=== PATIENT | male | born 1995 | race Caucasian/White ===

== ENCOUNTER 2017-11-30 07:45 | Emergency (ER) | payer BC ==
[~2017-11-30] VITALS: Ht 177.8 cm; Wt 88.4 kg
[2017-11-30 07:53] VITALS: BP 152/89
[2017-11-30] MEDS ORDERED: CefTRIAXone 250MG IM Kit w/LIDOcaine IM ONE (08:25)
[2017-11-30] MEDS ORDERED: ondansetron 4mg rapidly disintigrating tab PO ONE (08:25)
[2017-11-30] MEDS ORDERED: metroNIDAZOLE 500mg tablet PO ONE (08:25)
[2017-11-30] MEDS ORDERED: azithromycin 250mg tablet PO ONE (08:25)
[2017-11-30 08:35] LABS: CLARITY,URINE CLOUDY (Clear); COLOR,URINE YELLOW (Yellow); GLUCOSE, URINE NEGATIVE (Neg); KETONES,URINE NEGATIVE (Neg); LEUKOCYTE ESTERASE ,URINE SMALL (Neg); NITRITES, URINE NEGATIVE (Neg); OCCULT BLOOD,URINE TRACE-INTACT (Neg); PH,URINE 6.5 (4.8-8.0); PROTEIN,URINE TRACE mg/dl (Neg); UROBILINOGEN,URINE 0.2 E.U/dL (0.2-1.0)
[2017-11-30 08:50] LABS: UA COLLECTION TYPE CLN CATCH MIDSTREAM
[2017-11-30 08:51] LABS: BACTERIA,URINE FEW /HPF (Neg); MUCUS STRANDS NONE SEEN /LPF (Neg); RBC,URINE 0-2 /HPF (0-2); SQUAMOUS EPITHELIAL CELL,UR FEW /LPF (FEW); WBC CLUMPS,URINE MODERATE /HPF (NEGATIVE); WBC,URINE TNTC /HPF (0-4)
== END 2017-11-30 08:48 | disposition home or self-care (01) ==
LOC: ER 07:48
DX: N34.2 Other urethritis (principal); F17.200 Nicotine dependence, unspecified, uncomplicated; F12.90 Cannabis use, unspecified, uncomplicated
CPT/HCPCS: 36415; 81001; 87077; 87088; 87185; 87491; 87591; 96372; 99284; J0696; J3490

== ENCOUNTER 2018-01-22 08:03 | Emergency (ER) | payer BC ==
[~2018-01-22] VITALS: Ht 180.3 cm; Wt 84.1 kg
[2018-01-22 08:04] VITALS: BP 152/71
[2018-01-22] MEDS ORDERED: LIDO20SO16 PO (08:58)
[2018-01-22] MEDS ORDERED: METH4TAB3 PO (08:58)
== END 2018-01-22 09:03 | disposition home or self-care (01) ==
LOC: ER 08:03
DX: J06.9 Acute upper respiratory infection, unspecified (principal); J02.9 Acute pharyngitis, unspecified; J45.909 Unspecified asthma, uncomplicated; F17.200 Nicotine dependence, unspecified, uncomplicated; F12.90 Cannabis use, unspecified, uncomplicated
CPT/HCPCS: 87081; 87880; 99284

== ENCOUNTER 2018-10-19 18:28 | Emergency (ER) | payer BC, OTHER ==
[~2018-10-19] VITALS: Ht 180.3 cm; Wt 97.7 kg
[~2018-10-19 18:28] MED LIST: LIDO20SO16 PO; METH4TAB3 PO
[2018-10-19] MEDS ORDERED: LIDOcaine 1% w/epiNEPHrine 1:200,000 30ml vial IM ONE (20:20)
[2018-10-19] MEDS ORDERED: LIDOcaine 1% w/epiNEPHrine 1:200,000 30ml vial SQ ONE (20:20)
[2018-10-19 21:32] VITALS: BP 127/80
== END 2018-10-19 21:38 | disposition home or self-care (01) ==
LOC: ER 18:30
DX: S01.81XA Laceration without foreign body of other part of head, initial encounter (principal); S60.512A Abrasion of left hand, initial encounter; S60.511A Abrasion of right hand, initial encounter; J45.909 Unspecified asthma, uncomplicated; F12.90 Cannabis use, unspecified, uncomplicated; Z79.899 Other long term (current) drug therapy; Y04.0XXA Assault by unarmed brawl or fight, initial encounter; Y93.89 Activity, other specified; Y92.89 Other specified places as the place of occurrence of the external cause; Y99.8 Other external cause status
CPT/HCPCS: 12011; 73130; 99283; J3490

== ENCOUNTER 2019-08-29 06:42 | Emergency (ER) | payer BC ==
[~2019-08-29] VITALS: Ht 177.8 cm; Wt 100.0 kg
[2019-08-29 06:50] VITALS: BP 166/73
[2019-08-29] MEDS ORDERED: naproxen 500mg tablet PO ONE (07:00)
== END 2019-08-29 07:24 | disposition home or self-care (01) ==
LOC: ER 06:42
DX: M77.9 Enthesopathy, unspecified (principal); M25.522 Pain in left elbow; J45.909 Unspecified asthma, uncomplicated; F12.90 Cannabis use, unspecified, uncomplicated; Z72.89 Other problems related to lifestyle; Z79.899 Other long term (current) drug therapy
CPT/HCPCS: 99282

== ENCOUNTER 2019-10-28 17:48 | Emergency (ER) | payer BC ==
[~2019-10-28] VITALS: Ht 180.3 cm; Wt 90.9 kg
[2019-10-28 17:53] VITALS: BP 155/69
--- NOTE | 2019-10-28 18:04 | NUR ---
PT IS 24 YO MALE C/O SORE THROAT SINCE SUNDAY, NO COUGH, NO FEVER, NO DIFFICULTY SWALLOWING, RESP EVEN AND UNLABORED, WAITING TO BE EVALUATED
[2019-10-28] MEDS ORDERED: AMOX500C2 PO (19:08)
== END 2019-10-28 19:36 | disposition home or self-care (01) ==
LOC: ER 17:48
DX: J02.9 Acute pharyngitis, unspecified (principal); J45.909 Unspecified asthma, uncomplicated; F12.90 Cannabis use, unspecified, uncomplicated; Z79.2 Long term (current) use of antibiotics; Z79.899 Other long term (current) drug therapy
CPT/HCPCS: 87880; 99283

== ENCOUNTER 2019-11-10 15:38 | Emergency (ER) | payer BC ==
[~2019-11-10] VITALS: Ht 180.3 cm; Wt 95.5 kg
[2019-11-10 17:22] VITALS: BP 119/63
== END 2019-11-10 17:26 | disposition home or self-care (01) ==
LOC: ER 15:39
DX: J02.9 Acute pharyngitis, unspecified (principal); Z20.828 Contact with and (suspected) exposure to other viral communicable diseases; J45.909 Unspecified asthma, uncomplicated; F12.90 Cannabis use, unspecified, uncomplicated; Z79.899 Other long term (current) drug therapy
CPT/HCPCS: 36415; 87081; 87880; 99283

== ENCOUNTER 2020-01-22 13:10 | Emergency (ER) | payer BC ==
[~2020-01-22] VITALS: Ht 180.3 cm; Wt 86.4 kg
--- NOTE | 2020-01-22 14:18 | NUR ---
Patient ambulated to room from lobby with steady gait. Patient reports sore throat x 3 months. treated for strep with two antibiotics, still has pain. Patient test for COVID also and was negative.
[2020-01-22] MEDS ORDERED: dexamethasone sod phosphate 10mg/ml inj PO STA (14:33)
[2020-01-22 15:19] VITALS: BP 133/83
[2020-01-22 17:07] LABS: MONOTEST NEGATIVE (Neg)
== END 2020-01-22 15:15 | disposition home or self-care (01) ==
LOC: EEVIPCON 13:11 → ER 13:11
DX: J02.9 Acute pharyngitis, unspecified (principal); R53.1 Weakness; R53.83 Other fatigue; F17.200 Nicotine dependence, unspecified, uncomplicated; F12.90 Cannabis use, unspecified, uncomplicated; J45.909 Unspecified asthma, uncomplicated; Z72.89 Other problems related to lifestyle; Z79.899 Other long term (current) drug therapy
CPT/HCPCS: 36415; 86308; 87081; 87880; 99283; J1100

== ENCOUNTER 2020-06-12 20:35 | Emergency (ER) | payer BC ==
[~2020-06-12] VITALS: Ht 180.3 cm; Wt 91.9 kg
[2020-06-12 21:41] LABS: BASOPHILS % (AUTO) 0.6 % (0-1); EOSINOPHILS # (AUTO) 0.1 X10'3 (0-0.9); EOSINOPHILS % (AUTO) 1.6 % (0-6); HEMATOCRIT 47.4 % (42.0-52.0); HEMOGLOBIN 16.6 g/dl (14.0-17.9); LYMPHOCYTES # (AUTO) 2.1 X10'3 (1.1-4.8); LYMPHOCYTES % (AUTO) 29.3 % (21-51); MEAN CORPUSCULAR HGB CONC 35.1 g/dL (33.0-36.5); MEAN CORPUSCULAR VOLUME 91.3 FL (78-98); MEAN PLATELET VOLUME 8.1 FL (7.4-10.4); MONOCYTES # (AUTO) 0.5 X10'3 (0-0.9); MONOCYTES % (AUTO) 6.9 % (2-12); NEUTROPHILS # (AUTO) 4.4 X10'3 (1.8-7.7); NEUTROPHILS % (AUTO) 61.6 % (42-75); PLATELET COUNT 297 X10'3 (140-440); RED CELL DISTRIBUTION WIDTH 12.9 % (11.5-14.5); WHITE BLOOD COUNT 7.1 X10'3 (4.5-11.0)
[2020-06-12 21:43] LABS: CLARITY,URINE CLEAR (Clear); COLOR,URINE STRAW (Yellow); GLUCOSE, URINE NEGATIVE (Neg); KETONES,URINE NEGATIVE (Neg); LEUKOCYTE ESTERASE ,URINE NEGATIVE (Neg); NITRITES, URINE NEGATIVE (Neg); OCCULT BLOOD,URINE TRACE-LYSED (Neg); PH,URINE 5.5 (4.8-8.0); PROTEIN,URINE NEGATIVE (Neg); UROBILINOGEN,URINE 0.2 E.U/dL (0.2-1.0)
[2020-06-12 21:45] LABS: URINE AMPHETAMINE SCREEN NEGATIVE (Neg); URINE BARBITUATE SCREEN NEGATIVE (Neg); URINE BENZODIAZEPINES SCREEN NEGATIVE (Neg); URINE CANNABINOID SCREEN NEGATIVE (Neg); URINE COCAINE SCREEN NEGATIVE (Neg); URINE METHADONE SCREEN NEGATIVE (Neg); URINE OPIATE SCREEN NEGATIVE (Neg); URINE PHENCYCLIDINE SCREEN NEGATIVE (Neg)
[2020-06-12 21:49] LABS: ACETAMINOPHEN < 2.0 UG/ML (10-30); ALANINE AMINOTRANSFERASE 51 U/L (12-78); ALBUMIN 4.8 G/DL (3.4-5.0); ALBUMIN/GLOBULIN RATIO 1.1 (1.1-1.5); ALKALINE PHOSPHATASE 78 IU/L (46-116); ANION GAP 11 (8-16); ASPARTATE AMINO TRANSFERASE 19 U/L (10-37); BILIRUBIN,TOTAL 0.2 MG/DL (0.1-1.0); BLOOD UREA NITROGEN 10 MG/DL (7-18); BUN/CREATININE RATIO 10.9 (5.4-32.0); CALCIUM 9.1 MG/DL (8.5-10.1); CHLORIDE 107 MMOL/L (99-107); CREATININE 0.92 MG/DL (0.60-1.10); GLUCOSE 117 MG/DL (70-104); POTASSIUM 3.8 MMOL/L (3.5-5.1); SODIUM 146 MMOL/L (135-145); TOTAL CARBON DIOXIDE 28.3 MMOL/L (24-32); eGFR > 90 ML/MIN
[2020-06-12 21:50] LABS: UA COLLECTION TYPE VOIDED
[2020-06-12 21:51] LABS: BACTERIA,URINE NONE SEEN /HPF (Neg); RBC,URINE 0-2 /HPF (0-2); SQUAMOUS EPITHELIAL CELL,UR NONE SEEN /LPF (FEW); WBC,URINE 0-4 /HPF (0-4)
[2020-06-12 22:12] LABS: ETHANOL 0.299 GM/DL (0.0-0.010)
[2020-06-13] MEDS ORDERED: NO HOME MEDS (01:51)
[2020-06-13 05:00] VITALS: BP 106/67
--- NOTE | 2020-06-13 05:57 | NUR ---
PATIENT'S PACKET WAS SENT TO [facility].
--- NOTE | 2020-06-13 16:30 | NUR ---
CALLED THE [facility] OFFICE TO FIND WHEN THEY ARE GOING TO EVALUATE PT. THEY ARE AT [facility] NOW AND WILL BE COMING TO [facility] NEXT
--- NOTE | 2020-06-13 17:19 | NUR ---
BIANCA, PTS MOM CALLED [phone]. IF T
--- NOTE | 2020-06-13 17:19 | NUR ---
IF PT MEETS CRITERIA FOR DISCHARGE RAMIRO FEELS SAFE AND WILLING FOR PT TO BE DISCHARGED TO HER.
--- NOTE | 2020-06-13 18:24 | NUR ---
CALLED BIANCA STOVER INFORMED HER PT DISCHARGED. SHES ON HER WAY
== END 2020-06-13 18:35 ==
LOC: ER 20:36 → EEVIPCON 20:36 → ER 06-13 18:35
DX: F10.129 Alcohol abuse with intoxication, unspecified (principal); R45.851 Suicidal ideations; J45.909 Unspecified asthma, uncomplicated; F31.9 Bipolar disorder, unspecified; F17.200 Nicotine dependence, unspecified, uncomplicated; F12.90 Cannabis use, unspecified, uncomplicated; Z72.89 Other problems related to lifestyle; Z79.899 Other long term (current) drug therapy; Y90.7 Blood alcohol level of 200-239 mg/100 ml
CPT/HCPCS: 36415; 80053; 80305; 80320; 80329; 81001; 85025; 99285

== ENCOUNTER 2020-09-12 23:48 | Emergency (ER) | payer BC ==
[~2020-09-12] VITALS: Ht 180.3 cm; Wt 98.9 kg
[~2020-09-12 23:48] MED LIST changes: -LIDO20SO16 PO; -METH4TAB3 PO; +NO HOME MEDS
[2020-09-12 23:58] VITALS: BP 122/72
[2020-09-13] MEDS ORDERED: acetaminophen 325mg tablet PO ONE (00:30)
[2020-09-13] MEDS ORDERED: AMOX500C2 PO (00:40)
== END 2020-09-13 00:51 | disposition home or self-care (01) ==
LOC: ER 23:48
DX: J02.9 Acute pharyngitis, unspecified (principal); J45.909 Unspecified asthma, uncomplicated; F12.90 Cannabis use, unspecified, uncomplicated; Z79.2 Long term (current) use of antibiotics
CPT/HCPCS: 87077; 87081; 87880; 99283

== ENCOUNTER 2020-09-13 22:32 | Emergency (ER) | payer BC ==
[~2020-09-13] VITALS: Ht 180.3 cm; Wt 100.0 kg
[~2020-09-13 22:32] MED LIST changes: +AMOX500C2 PO
[2020-09-13 22:42] VITALS: BP 145/83
[2020-09-13] MEDS ORDERED: dexamethasone sod phosphate 10mg/ml inj PO STA (23:06)
== END 2020-09-13 23:30 | disposition home or self-care (01) ==
LOC: ER 22:32
DX: J02.9 Acute pharyngitis, unspecified (principal); R50.9 Fever, unspecified; J45.909 Unspecified asthma, uncomplicated; F31.9 Bipolar disorder, unspecified; F12.90 Cannabis use, unspecified, uncomplicated; F19.90 Other psychoactive substance use, unspecified, uncomplicated; Z72.89 Other problems related to lifestyle; Z79.2 Long term (current) use of antibiotics
CPT/HCPCS: 99283; J1100

== ENCOUNTER 2020-10-31 01:46 | Emergency (ER) | payer BC ==
[~2020-10-31] VITALS: Ht 180.3 cm; Wt 95.4 kg
[~2020-10-31 01:46] MED LIST changes: -AMOX500C2 PO
[2020-10-31 01:54] VITALS: BP 136/92
--- NOTE | 2020-10-31 02:00 | NUR ---
patient stated he was drinking beer tonight. His last was 2 hours ago.
[2020-10-31] MEDS ORDERED: LIDOcaine 1% W/epiNEPHrine 1:200,000 10ml vial IJ ONE (02:15)
== END 2020-10-31 03:58 | disposition home or self-care (01) ==
LOC: ER 01:46
DX: S01.112A Laceration without foreign body of left eyelid and periocular area, initial encounter (principal); J45.909 Unspecified asthma, uncomplicated; F31.9 Bipolar disorder, unspecified; F17.210 Nicotine dependence, cigarettes, uncomplicated; F12.90 Cannabis use, unspecified, uncomplicated; F19.90 Other psychoactive substance use, unspecified, uncomplicated; Z72.89 Other problems related to lifestyle; X58.XXXA Exposure to other specified factors, initial encounter; Y93.9 Activity, unspecified; Y92.89 Other specified places as the place of occurrence of the external cause; Y99.8 Other external cause status
CPT/HCPCS: 12011; 99282

== ENCOUNTER 2020-11-09 22:57 | Emergency (ER) | payer BC ==
[~2020-11-09] VITALS: Ht 180.3 cm; Wt 86.5 kg
[2020-11-09 23:49] LABS: CLARITY,URINE CLEAR (Clear); COLOR,URINE YELLOW (Yellow); GLUCOSE, URINE NEGATIVE (Neg); KETONES,URINE NEGATIVE (Neg); OCCULT BLOOD,URINE TRACE-INTACT (Neg); PH,URINE 5.5 (4.8-8.0); PROTEIN,URINE NEGATIVE (Neg)
[2020-11-09 23:50] LABS: LEUKOCYTE ESTERASE ,URINE NEGATIVE (Neg); NITRITES, URINE NEGATIVE (Neg); UROBILINOGEN,URINE 0.2 E.U/dL (0.2-1.0)
[2020-11-09 23:56] LABS: UA COLLECTION TYPE CLN CATCH MIDSTREAM
[2020-11-09 23:57] LABS: BACTERIA,URINE NONE SEEN /HPF (Neg); RBC,URINE 0-2 /HPF (0-2); WBC,URINE 0-4 /HPF (0-4)
[2020-11-09 23:58] LABS: MUCUS STRANDS FEW /LPF (Neg); SQUAMOUS EPITHELIAL CELL,UR FEW /LPF (FEW)
[2020-11-10 01:46] VITALS: BP 132/76
== END 2020-11-10 01:48 | disposition home or self-care (01) ==
LOC: ER 22:57
DX: N50.812 Left testicular pain (principal); J45.909 Unspecified asthma, uncomplicated; F31.9 Bipolar disorder, unspecified; F12.90 Cannabis use, unspecified, uncomplicated; F19.90 Other psychoactive substance use, unspecified, uncomplicated; Z72.89 Other problems related to lifestyle
CPT/HCPCS: 76870; 81001; 93976; 99284

== ENCOUNTER 2021-04-07 11:31 | Emergency (ER) | payer BC, OTHER ==
[~2021-04-07] VITALS: Ht 180.3 cm; Wt 90.0 kg
[2021-04-07 13:18] VITALS: BP 135/91
--- NOTE | 2021-04-07 13:47 | NUR ---
PT SEEN AND DC'D BY PROVIDER
== END 2021-04-07 14:31 | disposition home or self-care (01) ==
LOC: ER 11:32 → EEVIPCON 11:32 → ER 14:31
DX: R05.9 Cough, unspecified (principal); Z20.822 Contact with and (suspected) exposure to COVID-19; I10 Essential (primary) hypertension; R09.81 Nasal congestion; J45.909 Unspecified asthma, uncomplicated; F31.9 Bipolar disorder, unspecified; F12.90 Cannabis use, unspecified, uncomplicated; F19.90 Other psychoactive substance use, unspecified, uncomplicated; Z72.89 Other problems related to lifestyle
CPT/HCPCS: 87635; 99283; C9803

== ENCOUNTER 2022-07-01 23:00 | Emergency (ER) | payer BC ==
[~2022-07-01] VITALS: Ht 180.3 cm; Wt 95.5 kg
--- NOTE | 2022-07-01 23:11 | NUR ---
Dr Rubalcava reviewed ekg and requests no labs.
[2022-07-01] MEDS ORDERED: normal saline 1000ML IV soln IVB ONE (23:35)
[2022-07-01 23:37] LABS: BASOPHILS % (AUTO) 0.5 % (0-1); EOSINOPHILS # (AUTO) 0.1 X10'3 (0-0.9); EOSINOPHILS % (AUTO) 1.5 % (0-6); HEMATOCRIT 43.8 % (42.0-52.0); HEMOGLOBIN 15.4 g/dl (14.0-17.9); LYMPHOCYTES # (AUTO) 1.7 X10'3 (1.1-4.8); LYMPHOCYTES % (AUTO) 18.7 % (21-51); MEAN CORPUSCULAR HEMOGLOBIN 30.4 PG (27.0-31.0); MEAN CORPUSCULAR HGB CONC 35.1 g/dL (33.0-36.5); MEAN CORPUSCULAR VOLUME 86.6 FL (78-98); MONOCYTES # (AUTO) 0.6 X10'3 (0-0.9); MONOCYTES % (AUTO) 6.5 % (2-12); NEUTROPHILS # (AUTO) 6.7 X10'3 (1.8-7.7); NEUTROPHILS % (AUTO) 72.8 % (42-75); PLATELET COUNT 287 X10'3 (140-440); RED BLOOD COUNT 5.07 X10'6 (4.70-6.10); WHITE BLOOD COUNT 9.2 X10'3 (4.5-11.0)
[2022-07-02 00:02] LABS: ALANINE AMINOTRANSFERASE 64 U/L (12-78); ALBUMIN 4.4 G/DL (3.4-5.0); ALBUMIN/GLOBULIN RATIO 1.3 (1.1-1.5); ALKALINE PHOSPHATASE 87 IU/L (46-116); ANION GAP 10 (8-16); ASPARTATE AMINO TRANSFERASE 28 U/L (10-37); BILIRUBIN,TOTAL 0.3 MG/DL (0.1-1.0); BLOOD UREA NITROGEN 13 MG/DL (7-18); BUN/CREATININE RATIO 13.1 (5.4-32.0); CALCIUM 9.2 MG/DL (8.5-10.1); CHLORIDE 103 MMOL/L (99-107); CREATININE 0.99 MG/DL (0.60-1.10); GLUCOSE 114 MG/DL (70-104); POTASSIUM 3.6 MMOL/L (3.5-5.1); SODIUM 141 MMOL/L (135-145); TOTAL CARBON DIOXIDE 27.8 MMOL/L (24-32); TOTAL PROTEIN 7.7 G/DL (6.4-8.2); eGFR > 90 ML/MIN
[2022-07-02 00:36] LABS: D-DIMER < 0.19 MG/L FEU (0-0.50)
[2022-07-02 00:53] LABS: URINE AMPHETAMINE SCREEN NEGATIVE (Neg); URINE BARBITUATE SCREEN NEGATIVE (Neg); URINE BENZODIAZEPINES SCREEN NEGATIVE (Neg); URINE CANNABINOID SCREEN NEGATIVE (Neg); URINE COCAINE SCREEN NEGATIVE (Neg); URINE METHADONE SCREEN NEGATIVE (Neg); URINE OPIATE SCREEN NEGATIVE (Neg); URINE PHENCYCLIDINE SCREEN NEGATIVE (Neg)
[2022-07-02 03:33] VITALS: BP 136/88
== END 2022-07-02 03:34 | disposition home or self-care (01) ==
LOC: ER 23:00 → EEVIPCON 23:00 → ER 07-02 03:34
DX: R00.0 Tachycardia, unspecified (principal); F19.10 Other psychoactive substance abuse, uncomplicated; J45.909 Unspecified asthma, uncomplicated; F31.9 Bipolar disorder, unspecified; F12.10 Cannabis abuse, uncomplicated; Z79.899 Other long term (current) drug therapy
CPT/HCPCS: 36415; 71045; 80053; 80305; 83880; 84484; 85025; 85379; 93005; 96360; 96361; 99285; J7030

== ENCOUNTER 2024-05-28 08:31 | Emergency (ER) | payer BC, OTHER ==
[~2024-05-28] VITALS: Ht 180.3 cm; Wt 102.3 kg
[2024-05-28 08:50] VITALS: BP 146/95; PULSE 102; RESP 16; TEMP 98.9; O2SAT 97
[2024-05-28] MEDS ORDERED: POLOS LEFTEYE (11:12)
== END 2024-05-28 11:21 | disposition home or self-care (01) ==
LOC: ER 08:31
DX: H10.9 Unspecified conjunctivitis (principal); J45.909 Unspecified asthma, uncomplicated; F12.90 Cannabis use, unspecified, uncomplicated; F14.90 Cocaine use, unspecified, uncomplicated
CPT/HCPCS: 99283